=== PATIENT | female | born 1995 | race Two or more races ===

== ENCOUNTER 2018-11-18 02:51 | Emergency (ER) | payer SELFPAY ==
[~2018-11-18] VITALS: Ht 167.6 cm; Wt 54.4 kg
[2018-11-18 03:05] VITALS: BP 119/79
[2018-11-18] MEDS ORDERED: CEPHALEXIN MONOHYDRATE 500 MG CAPSULE PO ONE ×2 (03:30→03:31)
[2018-11-18] MEDS ORDERED: HYDROCODONE/APAP 5/325MG 1 EACH TABLET PO ONE (03:30)
[2018-11-18] MEDS ORDERED: HYDROCODONE/APAP 5/325MG 1 EACH TABLET ONE (03:31)
== END 2018-11-18 03:44 | disposition home or self-care (01) ==
LOC: ER 02:56
DX: S01.25XA Open bite of nose, initial encounter (principal); S01.85XA Open bite of other part of head, initial encounter; W54.0XXA Bitten by dog, initial encounter; Y93.89 Activity, other specified; Y92.89 Other specified places as the place of occurrence of the external cause; Y99.8 Other external cause status